=== PATIENT | male | born 1965 | race Caucasian/White ===

== ENCOUNTER 2016-11-25 13:57 | Emergency (ER) | payer OTHER ==
[~2016-11-25 13:57] MED LIST: ALEVE220 M1 PO; ASPIRIN81 M2; COUMADIN; COUMADIN5 MG PO; GABAPENTIN800 MG PO; HYDROCODON-ACE1 EAC9 PO; KEFLEX PO; KEFLEX500 M1 PO; NEURONTIN PO; NORCO1 TAB 10/3; OCUFLOX10 ML OU; PERCOCET5/325 PO; PREDNISONE PO; ROBAXIN500 MG PO; VOLTAREN75 MG PO; XARELTO20 MG PO; ZOLOFT100 MG
== END 2016-11-25 14:07 | disposition home or self-care (01) ==
LOC: CED 13:57
DX: K40.90 Unilateral inguinal hernia, without obstruction or gangrene, not specified as recurrent (principal)
CPT/HCPCS: 99282

== ENCOUNTER 2016-12-05 16:02 | Emergency (ER) | payer OTHER ==
--- NOTE | ~2016-12-05 | US84 ---
[id number] [facility] [place] [address] [place], [place] [address] [id number] MR#: [id number] Acc #: [id number] NAME: CRISPIN QUIROZ : 1965 SEX: M STUDY DATE/TIME: 12/05/2016 19:01 UNIT: [facility]FT[facility] ROOM: STUDY DESCRIPTION: US LE Veins Complete Mc Stdy Attending Physician: Giles Eaton M.D. Ordering Physician: Ja Adam Primary Care Physician: Fadia Barcenas Aprn MEDICAL IMAGING REPORT This report is preliminary unless electronic signature is present EXAM Bilateral lower extremity venous ultrasound, 12/05/2016 HISTORY Bilateral lower extremity venous Doppler, bilateral calf pain 3 months. No history of blood clot, history of left peripheral arterial disease. History of stent. Takes blood thinner 3-4 years. TECHNIQUE Venous ultrasound examination of both lower extremities was performed using grayscale, spectral Doppler and color flow Doppler imaging. FINDINGS The examination is negative. There is no evidence of deep venous thrombus from the groin to the lower calf bilaterally. Visualized greater saphenous veins are also patent. IMPRESSION Negative examination. No evidence of lower extremity deep venous thrombosis. Dictated by... Dick Huddleston M.D. THIS IS AN ELECTRONICALLY VERIFIED REPORT Dick Huddleston M.D. at 12/06/2016 3:05 PM ARNOL/farida TD: 12/06/2016 00:12 JOB #: [id number] MEDICAL IMAGING REPORT Page 1 of 1 COPY
== END 2016-12-05 21:05 | disposition home or self-care (01) ==
LOC: CFTX 16:02
DX: G57.93 Unspecified mononeuropathy of bilateral lower limbs (principal)
CPT/HCPCS: 93970; 99284; J2270; J2405